=== PATIENT | male | born 1935 | race Caucasian/White ===

== ENCOUNTER 2021-01-24 15:46 | Emergency (ER) | payer OTHER ==
[~2021-01-24] VITALS: Ht 162.6 cm; Wt 112.5 kg
[2021-01-24] MEDS ORDERED: SPIRONOLACTONE25 MG PO (16:58)
[2021-01-24] MEDS ORDERED: CARVEDILOL12.5 MG PO (16:58)
[2021-01-24] MEDS ORDERED: NEURONTIN 300M300 M2 PO (16:59)
[2021-01-24] MEDS ORDERED: LIPITOR 40 MG T40 M1 PO (16:59)
[2021-01-24] MEDS ORDERED: TRADJENTA5 MG (16:59)
[2021-01-24] MEDS ORDERED: ALLOPURINOL 30300 M1 PO (16:59)
[2021-01-24] MEDS ORDERED: WARFARIN SODIUM1 MG PO (16:59)
[2021-01-24] MEDS ORDERED: LEVOTHYROXINE75 MCG PO (17:00)
[2021-01-24] MEDS ORDERED: GLIMEPIRIDE4 MG PO (17:00)
[2021-01-24] MEDS ORDERED: PROTONIX40 M2 PO (17:01)
[2021-01-24] MEDS ORDERED: TAMSULOSIN HCL0.4 MG PO (17:02)
[2021-01-24] MEDS ORDERED: DEMADEX20 MG PO (17:04)
[2021-01-24 17:50] LABS: INR 3.12; PROTIME 32.2 Seconds (9.3-11.4)
[2021-01-25 07:13] VITALS: BP 164/100
== END 2021-01-24 21:30 | disposition home or self-care (01) ==
LOC: ER 15:46
PROVIDERS: Physician Assistant
DX: T18.128A Food in esophagus causing other injury, initial encounter (principal); I48.91 Unspecified atrial fibrillation; Z88.1 Allergy status to other antibiotic agents; Z79.899 Other long term (current) drug therapy; Z79.01 Long term (current) use of anticoagulants; Y92.89 Other specified places as the place of occurrence of the external cause
CPT/HCPCS: 62110; 62900; 65130